=== PATIENT | male | born 1955 | race Caucasian/White ===

== ENCOUNTER 2016-07-23 14:42 | Emergency (ER) | payer OTHER ==
[~2016-07-23] VITALS: Ht 182.9 cm; Wt 73.1 kg
[~2016-07-23 14:42] MED LIST: DAILY MULTIPLE1 EACH PO; VITAMIN E400 UNIT PO
[2016-07-23 15:08] LABS: HEMATOCRIT 41.1 % (38.0-50.0); MCV 88.6 FL (86-99); PLATELET COUNT 140 K/uL (156-360); RBC DIS.WIDTH-CV 12.2 % (11.8-14.6); RBC DIS.WIDTH-SD 39.5 % (39-53); RED BLOOD COUNT 4.64 M/uL (4.00-5.50); WHITE BLOOD COUNT 4.2 K/uL (4.1-10.2)
[2016-07-23 15:20] LABS: CHLORIDE 107 mEq/L (99-109); SODIUM 142 mEq/L (136-147)
[2016-07-23 15:22] LABS: GLUCOSE 161 mg/dL (70-99)
[2016-07-23 15:23] LABS: ANION GAP 10 MEQ/L (2-14)
[2016-07-23 15:24] LABS: TOTAL BILIRUBIN 0.8 mg/dL (0.0-1.0)
[2016-07-23 15:26] LABS: ALKALINE PHOSPHATASE 50 IU/L (3-129); GFR ESTIMATE (CALCULATED) > 59 mL/min/
[2016-07-23 15:27] LABS: UREA NITROGEN (BUN) 30 mg/dL (9-23)
[2016-07-23 15:29] LABS: LIPASE 29 U/L (1.0-51.0); TROP-I INTERPRETATION NEGATIVE; TROPONIN-I < 0.01 ng/mL (0.0-0.30)
[2016-07-23 16:47] LABS: ADD MIUA? YES; BILIRUBIN NEGATIVE; BLOOD SMALL; COLOR YELLOW ((YELLOW)); GLUCOSE (STRIP) NEGATIVE; KETONES NEGATIVE; LEUKOCYTES NEGATIVE; NITRITE NEGATIVE; PROTEIN (STRIP) NEGATIVE; SPECIFIC GRAVITY 1.017 (1.000-1.030); UROBILINOGEN 0.2 MG/DL (0.2-1.0)
[2016-07-23 16:52] LABS: BACTERIA NONE SEEN /HPF; EPITHELIAL CELLS NONE SEEN /HPF; MUCUS 1+ /LPF; RED BLOOD CELLS 40-50 /HPF (0-5); WHITE BLOOD CELLS 0-5 /HPF (0-5)
[2016-07-23] MEDS ORDERED: FLOMAX0.4 MG PO (17:01)
[2016-07-23] MEDS ORDERED: NAPROXEN500 MG PO (17:01)
[2016-07-23] MEDS ORDERED: NORCO 5/3251 TABLET PO (17:01)
[2016-07-23 17:33] VITALS: BP 117/84
== END 2016-07-23 17:36 | disposition home or self-care (01) ==
LOC: EME 14:42
PROVIDERS: Nurse Practitioner Family
DX: N20.0 Calculus of kidney (principal); R91.1 Solitary pulmonary nodule
CPT/HCPCS: 71020; 74176; 80053; 81003; 83690; 84484; 85027; 93005; 99281; 99284